=== PATIENT | male | born 1980 | race Caucasian/White ===

== ENCOUNTER 2023-09-21 11:08 | Emergency (ER) | payer OTHER, SELFPAY ==
[2023-09-21] VITALS (9 sets, daily range): BP systolic 139–177; BP diastolic 95–118; PULSE 71–121; RESP 14–26; TEMP 36.8–37; O2SAT 95–100
--- NOTE | ~2023-09-21 | XR_ITS ---
Clinical Indication: Chest pain PA and lateral views of the chest: Comparison: None Findings: The lungs are clear, without evidence of focal consolidation or pleural effusion. Cardiome diastinal silhouette is within normal limits. Bones and soft tissues are unremarkable. Impression: Normal chest. Reviewed, dictated and finalized at location . 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
--- NOTE | ~2023-09-21 | CT_ITS ---
EXAMINATION: CTA chest PE protocol DATE: 09/21/2023 13:32 INDICATION: Chest pain. Shortness of breath. TECHNIQUE: Computed tomography angiography (CTA) of the chest was performed with 100 mL Omnipaque-350 intravenous contrast timed to evaluate the pulmonary arteries. Coronal maximum intensity projection 3D-reconstructions were created by the technologist. Automated exposure control and iterative reconst ruction technique were employed. The dose-length product was 690.35 mGy-cm. COMPARISON: Chest 2 views 09/21/2023 FINDINGS: The lungs demonstrate mild atelectasis. There are 3 mm, 2 mm, and 4 mm nodules in right bettye g, likely benign. No pleural effusion. The heart size is normal. No pericardial effusion. There is no pulmonary embolus. There is mild thoracic spondylosis. IMPRESSION: 1. No pulmonary embolus. Reviewed, dictated and finalized at location A. 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 No pulmonary embolus.
--- NOTE | 2023-09-21 11:11 | ECG_ITS ---
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
[2023-09-21 11:26] LABS: Basophils Percent Auto 0.4 % (0.2-1.2); Eosinophils Absolute Auto 0.2 K/mm3 (0-0.3); Eosinophils Percent Auto 1.9 % (0-4.4); Hematocrit 55.3 % (42.0-52.0); Hemoglobin 18.9 g/dL (14.0-18.0); Immature Granulocyte Absolute 0.04 K/mm3 (0.00-0.031); Immature Granulocyte Percent A 0.5 % (0-0.5); Lymphocytes Absolute Auto 1.98 K/mm3 (0.9-3.2); Lymphocytes Percent Auto 23.5 % (18.3-44.2); Mean Corpuscular HGB Conc 34.2 g/dl (32-36); Mean Corpuscular Hemoglobin 32.4 pg (26-34); Mean Corpuscular Volume 94.7 fl (80-100); Mean Platelet Volume 10.9 fl (7.4-10.4); Monocytes Absolute Auto 0.4 K/mm3 (0.1-0.6); Monocytes Percent Auto 5.1 % (2.6-8.5); Neutrophils Absolute Auto 5.8 K/mm3 (1.3-6.7); Neutrophils Percent Auto 68.6 % (45.5-73.1); Platelet Count Result 184 k/mm3 (150-375); Red Blood Count 5.84 M/mm3 (4.6-6.20); Red Cell Distribution Width 12.6 % (11.5-14.5); White Blood Count 8.4 K/mm3 (4.5-10.0)
[2023-09-21 11:38] LABS: Alanine Aminotransferase 40 U/L (6-50); Albumin Level 4.8 g/dL (3.5-5.1); Alkaline Phosphatase 94 U/L (38-126); Anion Gap 13 mmol/L (8-16); Aspartate Amino Transferase 32 U/L (17-59); Bilirubin,Total 1.1 mg/dL (0.2-1.3); Blood Urea Nitrogen 7 mg/dL (9-20); Calcium 9.4 mg/dL (8.4-10.2); Carbon Dioxide 24 mmol/L (22-30); Chloride 101 mmol/L (98-107); Estimated CRCL calculation 124 ml/min; Estimated Glomerular Filt Rate > 60; Glucose 135 mg/dL (65-110); Lipase 134 U/L (23-300); Potassium 3.7 mmol/L (3.4-5.0); Sodium 138 mmol/L (137-145)
--- NOTE | 2023-09-21 11:40 | ECG_ITS ---
Measurements Intervals [place] Rate: 110 P: 25 NV: 132 QRS: 40 QRSD: 108 T: 31 QT: 319 QTc: 433 Interpretive Statements SINUS TACHYCARDIA POSSIBLE LEFT ATRIAL ENLARGEMENT POSSIBLE LEFT VENTRICULAR HYPERTROPHY MINIMAL Q WAVES- DIFFUSE LEADS BORDERLINE ST-T WAVE ABNORMALITY- INF/LAT LEADS ABNORMAL ECG COMPARED TO ECG 09/21/2023 11:15:36 NO SIGNIFICANT CHANGES Electronically Signed On 09-21-2023 11:32:58 [employer]ARM [employer]ORER by Bird Box D.O.
[2023-09-21 11:41] LABS: INR 0.9; Prothrombin Time 12.9 Seconds (11.1-14.7)
[2023-09-21 11:43] LABS: Partial Thromboplastin Time 27.7 SECONDS (22.3-36.8)
[2023-09-21 11:49] LABS: Troponin I < 0.012 ng/mL (0.000-0.034)
[2023-09-21] MEDS: ASPIRIN 81 MG CHEWABLE TABLET 324 MG PO (12:15)
--- NOTE | 2023-09-21 12:22 | PC.NURSE ---
Pt hypertensive, B/P checked manually 145/118. ED MD informed
--- NOTE | 2023-09-21 12:40 | ED.CHESTPAIN ---
HPI - Chest Pain General Chief Complaint: Chest Pain Stated Complaint: CP Time Seen by Provider: 09/21/23 12:39 History of Present Illness HPI narrative: Patient is a 42-year-old male with no past medical history, follows closely with a primary care provider here with chest pain. He states that it began approximately 1 week ago. He notes that it is wax and wane in severity over the last week and does not seem to be associated with particular movements or exertion. The pain is located left-sided, nonradiating, occasionally associated with some nausea and shortness of breath. He has not taken anything at home for the pain. He denies any associated cough, congestion, fever, chills. No prior history of PE or DVT, no recent travel or surgery. He does note a family history of coronary artery disease but both of his parents were quite old when their coronary artery disease occurred. He denies any trauma or recent change in physical activity that could have triggered the chest pain. No leg pain or calf swelling. Related Data Allergies Allergy/AdvReac Type Severity Reaction Status Date / Time No Known Allergies Allergy Verified 08/24/18 10:13 Review of Systems Review of Systems: All systems reviewed & are unremarkable except as noted in HPI and below Exam Narrative: GENERAL: Well-appearing, well-nourished, and in no acute distress. HEAD: Normocephalic, atraumatic. EYES: PERRLA and EOMI. ENT: Nares clear. Mucous membranes moist. NECK: Supple. CHEST: Clear to auscultation. No respiratory distress. No reproducible chest wall tenderness HEART: Regular rate and rhythm. Normal peripheral pulses. ABDOMEN: Soft, nontender, nondistended. EXTREMITIES: Normal range of motion. No edema. SKIN: Warm, dry, no rash. NEURO: No focal deficits. Alert and oriented x3. PSYCH: Normal mood and affect. Course Course Emergency Course: Chart review performed. Patient is here for chest pain for about 1 week. Triage vitals show tachycardia, hypertension, normal O2 sat. No prior visits in our system. Chest pain workup initiated by triage reviewed. CBC shows Hgb of 18.9, suspect hemoconcentration due to dehydration. Initial troponin <0.012. Chest XR normal read by radiology and reviewed by myself. Patient seen evaluated, in no acute distress. He is tachycardic on the monitor ranging from 110-120 during our evaluation. Blood pressure is normal at this time. Concern for possible ACS, musculoskeletal pain, pneumonia, PE given persistent tachycardia, chest pain and shortness of breath. In addition to cardiac workup will additionally do CTA PE study to evaluate for possible PE. Patient refuses all pain medication, antiemetics, IV fluids. Repeat troponin negative. CTA PE negative. HEART score of 1. Extensive discussion with patient regarding his negative workup here in the emergency department his heart score of 1 and the option for outpatient cardiac testing. Will refer him to Cardiology. I discussed at length with him regarding his high blood pressure readings here in the emergency department and that he needs these recheck to his primary care doctor's office and may need to be started on blood pressure medications outpatient. The results of pertinent diagnostic studies and exam findings were discussed. The patient?s provisional diagnosis and plan of care were discussed with the patient and present family. The patient and/or present family expressed understanding of the diagnosis and plan. The nurse was instructed to provide written instructions and appropriate follow-up information. The patient understands their need and responsibility to obtain additional follow-up as instructed. The risks of medications administered and prescribed were discussed with the patient and family present. Vital Signs Vital signs: Vital Signs Temperature 98.6 F 09/21/23 11:14 Pulse Rate 105 H 09/21/23 11:14 Respiratory Rate 18 09/21/23 11:14 Blood Pressure 177
--- NOTE | 2023-09-21 14:32 | PC.NURSE ---
Pt anxious concerning B/P & heart rate. Calls RN frequently to discuss numbers on monitor. Pt reassured that he is being monitored even when staff not in the room.
[2023-09-21 14:41] LABS: Troponin I < 0.012 ng/mL (0.000-0.034)
--- NOTE | 2023-09-21 15:45 | PC.NURSE ---
Pt took off B/P monitor. Very agitated, voicing he doesn't understand why he can't be told why he is having chest pain & high blood pressure. RN reinforced ER physician can rule out emergent conditions. That pts cardiac enzymes are WNL, CTA negative for blood clot. Encouraged pt to attempt to relax getting anxious is not going to help pts blood pressure or heart rate
== END 2023-09-21 16:14 | disposition home or self-care (01) ==
PROVIDERS: Emergency Medicine; Emergency Provider Student in an Organized Health Care Education/Training Program; PCP Physician Assistant
DX: R07.9 Chest pain, unspecified (principal); R00.0 Tachycardia, unspecified; R94.31 Abnormal electrocardiogram [ECG] [EKG]
CPT/HCPCS: 36415; 71046; 71275; 80053; 83690; 84484; 85025; 85610; 85730; 93005; 99284; A9270; Q9967